=== PATIENT | female | born 1950 | race American Indian/Alaskan Native ===

== ENCOUNTER 2017-10-10 14:51 | Emergency (ER) | payer MEDICAID ==
--- NOTE | 2017-10-10 16:42 | XRay Report ---
FINAL REPORT EXAM: XR CHEST ROUTINE 2V HISTORY: Shortness of breath TECHNIQUE: Two view chest PA and lateral PRIORS: None. FINDINGS: Cardiac and mediastinal contours are unremarkable. No focal pulmonary infiltrate is identified. No pleural fluid collection seen. Pulmonary vasculature is unremarkable. IMPRESSION: Negative two-view chest
[2017-10-10 16:45] LABS: Basophils % (Auto) 0.4 % (0.0-1.8); Eosinophils % (Auto) 0.8 % (0.0-4.3); Hematocrit 40.5 % (30.3-42.9); Hemoglobin 13.4 gm/dl (10.1-14.3); Lymphocytes # (Auto) 1.9 K/mm3 (1.2-5.4); Mean Corpuscular HGB Conc 33 % (30-34); Mean Corpuscular Hemoglobin 28 pg (28-32); Mean Corpuscular Volume 84 fl (79-97); Monocytes # (Auto) 0.5 K/mm3 (0.0-0.8); Monocytes % (Auto) 9.8 % (0.0-7.3); Platelet Count 251 K/mm3 (140-440); Red Blood Count 4.84 M/mm3 (3.65-5.03); Red Cell Distribution Width 14.7 % (13.2-15.2)
[2017-10-10 17:02] LABS: BUN/Creatinine Ratio 12; Blood Urea Nitrogen 11 mg/dL (7-17); Calcium 9.6 mg/dL (8.4-10.2); Hemolysis Index 4
[2017-10-10 21:08] VITALS: BP 209/107
--- NOTE | 2017-10-10 21:30 | Emergency Department Report ---
ED General Adult HPI - General Chief complaint: High BP Stated complaint: REFFERAL Time Seen by Provider: 10/10/17 20:51 Source: patient, family Mode of arrival: Ambulatory Limitations: No Limitations - History of Present Illness Initial comments: Patient just moved here from [place] 3 weeks ago. She comes to the ER because she is running out of her clonidine patches and has not found a new primary care physician yet. She states that she has a history of white coat hypertension. Denies chest pain, shortness of breath, belly pain, vision changes, headaches. Severity scale (0 -10): 0 - Related Data Previous Rx's Medication Instructions Recorded Last Taken Type cloNIDine [Clonidine] 1 each TD 1XW #3 patch.tdwk 10/10/17 Unknown Rx Allergies Allergy/AdvReac Type Severity Reaction Status Date / Time No Known Allergies Allergy Unverified 10/10/17 15:37 ED Review of Systems ROS: Stated complaint: REFFERAL Other details as noted in HPI Comment: All other systems reviewed and negative ED Past Medical Hx - Past Medical History Previous Medical History?: Yes Hx Congestive Heart Failure: Yes Hx GERD: Yes Additional medical history: Abnormal EKG - Surgical History Past Surgical History?: No - Social History Smoking Status: Never Smoker Substance Use Type: Prescribed - Medications Home Medications: Home Medications Medication Instructions Recorded Confirmed Last Taken Type cloNIDine [Clonidine] 1 each TD 1XW #3 patch.tdwk 10/10/17 Unknown Rx ED Physical Exam - General Limitations: No Limitations General appearance: alert, in no apparent distress - Head Head exam: Present: atraumatic, normocephalic - Eye Eye exam: Present: normal appearance - ENT ENT exam: Present: mucous membranes moist - Neck Neck exam: Present: normal inspection - Respiratory Respiratory exam: Present: normal lung sounds bilaterally. Absent: respiratory distress - Cardiovascular Cardiovascular Exam: Present: regular rate, normal rhythm. Absent: systolic murmur, diastolic murmur, rubs, gallop - GI/Abdominal GI/Abdominal exam: Present: soft, normal bowel sounds. Absent: tenderness - Extremities Exam Extremities exam: Present: normal inspection - Back Exam Back exam: Present: normal inspection - Neurological Exam Neurological exam: Present: alert, oriented X3 - Psychiatric Psychiatric exam: Present: normal affect, normal mood - Skin Skin exam: Present: warm, dry, intact, normal color. Absent: rash ED Course Vital Signs 10/10/17 10/10/17 15:38 21:08 Temperature 98.3 F 97.7 F Pulse Rate 88 73 Respiratory 18 16 Rate Blood Pressure 210/102 Blood Pressure 209/107 [Right] O2 Sat by Pulse 99 99 Oximetry ED Medical Decision Making - Lab Data Result diagrams: 10/10/17 16:08 10/10/17 16:08 - EKG Data -: EKG Interpreted by Me EKG shows normal: sinus rhythm, axis, intervals, QRS complexes Rate: normal - EKG Data When compared to previous EKG there are: previous EKG unavailable Interpretation: other (inferior and lateral T-wave inversions) - Medical Decision Making 66-year-old female with past medical history of CHF, white coat hypertension that presents to the ER for medication refill and PCP referral. Lab work is unremarkable. Vital signs are significant for hypertension with a systolic blood pressure 190. Patient states whenever she comes to the ER, clinic, or hospital that her blood pressure goes up. She is asymptomatic. Patient has her old hospital paperwork in [place] hypertension is documented on it. Patient has been given 3 weeks' worth of her current clonidine and a referral to a family physician in the area. - Differential Diagnosis malignant hypertension versus hypertensive emergency, ACS, medication nonco Critical care attestation.: If time is entered above; I have spent that time in minutes in the direct care of this critically ill patient, excluding procedure time. ED Disposition Clinical Impression: Hypertension Disposition: DC-01 TO HOME OR SELFCARE Is pt being admited?: No Does the pt Need Aspirin: No Condition: Stable Instructions: Hypertension (ED) Additional Instructions: Please follow-up with your new family physician for further management of her blood pressure and refills of your home medication Prescriptions: cloNIDine [Clonidine] 1 each TD 1XW #3 patch.tdwk Referrals: LIZETTE HENSON MD [Referring] - 3-5 Days
== END 2017-10-10 21:47 | disposition home or self-care (01) ==
LOC: ED 14:51
DX: I11.0 Hypertensive heart disease with heart failure (principal); I50.9 Heart failure, unspecified; K21.9 Gastro-esophageal reflux disease without esophagitis
CPT/HCPCS: 36415; 71046; 80048; 83880; 84484; 85025; 93005; 93010

== ENCOUNTER 2018-10-17 07:53 | Outpatient (CLI) | payer MEDICARE ==
--- NOTE | 2018-10-17 10:51 | Nuclear Medicine Report ---
GASTRIC EMPTYING STUDY HISTORY: Gastroesophageal reflux disease COMPARISON: None. TECHNIQUE: The patient was fed oatmeal containing 1.1 mCi of technetium 99m sulfur collate. Anterior abdominal imaging was performed for 90 minutes. Emptying curves were constructed. FINDINGS: Half-life for gastric emptying measures 60 minutes. There is no evidence for gastroesophageal reflux on the nuclear medicine images. Additional findings: None. IMPRESSION: Normal gastric emptying. Signer Name: Fidencio Bolton Jr, MD Signed: 10/17/2018 10:46 AM Workstation Name: [id number]
--- NOTE | 2018-10-17 12:02 | Ultrasound Report ---
ULTRASOUND ABDOMEN, COMPLETE INDICATION: ABDOMINAL PAIN/. COMPARISON: No relevant prior imaging study available. FINDINGS: Pancreas: No significant abnormality. Abdominal Aorta: No significant abnormality. IVC: Not visualized. Liver: The liver is normal size measuring 14 cm in length. The liver parenchyma is echogenic consiste nt with mild diffuse fatty infiltration or nonspecific parenchymal disease. No surface nodularity or hepatic mass is identified. Gallbladder: The gallbladder is packed with multiple shadowing stones. No abnormal dilatation, wall t hickening or surrounding fluid.. Bile ducts: No significant abnormality. Common bile duct measures 4.1 mm. Kidneys: Right: 8.5 cm in length. No significant abnormality. Left: 9.0 cm in length. No signific ant abnormality. Spleen: No significant abnormality. Free fluid: None. Additional Findings: None. IMPRESSION: Echogenic liver consistent with mild diffuse fatty infiltration or other nonspecific parenchymal dise ase. No hepatic mass is identified. Cholelithiasis. No secondary findings of acute cholecystitis. Signer Name: Fidencio Bolton Jr, MD Signed: 10/17/2018 11:57 AM Workstation Name: [id number]
== END 2018-10-17 07:54 | disposition home or self-care (01) ==
LOC: US 07:53
PROVIDERS: ATTEND Nurse Practitioner
DX: K80.20 Calculus of gallbladder without cholecystitis without obstruction (principal); K21.9 Gastro-esophageal reflux disease without esophagitis; I11.0 Hypertensive heart disease with heart failure; I50.9 Heart failure, unspecified
CPT/HCPCS: 76700; 78264; A9541